=== PATIENT | male | born 1960 | race Caucasian/White ===

== ENCOUNTER 2024-02-09 05:08 | Emergency (ER) | payer OTHER ==
[2024-02-09 05:16] VITALS: BP 134/89; PULSE 72; RESP 18; TEMP 98.1; BMI 20.9
[2024-02-09] MEDS: TOBRA 0.3%/DEXAMETH 0.1% OPHTHALMIC SUSP 2.5 ML BTL OU STA (05:26)
== END 2024-02-09 05:26 | disposition home or self-care (01) ==
LOC: FER 05:08
DX: H10.31 Unspecified acute conjunctivitis, right eye (principal)
CPT/HCPCS: 99283-25